=== PATIENT | male | born 1985 | race African-American/Black ===

== ENCOUNTER 2024-03-07 10:39 | Emergency (ER) | payer MEDICAID, OTHER ==
[~2024-03-07] VITALS: Ht 182.9 cm; Wt 79.5 kg
[2024-03-07 10:46] VITALS: TEMP 98.7
[2024-03-07 10:53] LABS: COVID AG,FIA SOURCE NASAL SWAB
[2024-03-07 11:27] LABS: RAPID GROUP A STREP NEGATIVE (NEGATIVE)
[2024-03-07 11:29] LABS: SARS-COV2 (COVID) ANTIGEN,FIA Negative (Negative)
[2024-03-07 11:30] LABS: INFLUENZA TYPE A NEGATIVE FOR TYPE A (NEGATIVE); INFLUENZA TYPE B NEGATIVE FOR TYPE B (NEGATIVE)
[2024-03-07] MEDS ORDERED: HYDR-4062 PO (11:44)
[2024-03-07] MEDS ORDERED: IBUP-1554 PO (11:44)
[2024-03-07] MEDS ORDERED: CEPH-558 PO (11:44)
[2024-03-07] MEDS: GENTAMICIN SULFATE 0.3% OPHTHALMIC SOLUTION 5 ML OD ONE (11:52)
[2024-03-07 12:12] VITALS: BP 110/65; PULSE 75; RESP 18; O2SAT 99
== END 2024-03-07 12:15 | disposition home or self-care (01) ==
LOC: EMS 10:41
DX: H10.9 Unspecified conjunctivitis (principal); J02.9 Acute pharyngitis, unspecified; F17.210 Nicotine dependence, cigarettes, uncomplicated; Z20.822 Contact with and (suspected) exposure to COVID-19
CPT/HCPCS: 87430; 87804; 99283

== ENCOUNTER 2025-01-29 07:02 | Emergency (ER) | payer MEDICAID, OTHER ==
[~2025-01-29 07:02] MED LIST: CEPH-558 PO; HYDR-4062 PO; IBUP-1554 PO
== END 2025-01-29 07:26 | disposition left against medical advice (07) ==
LOC: EMS 07:08
DX: R51.9 Headache, unspecified (principal); M54.9 Dorsalgia, unspecified; R50.9 Fever, unspecified; Z53.21 Procedure and treatment not carried out due to patient leaving prior to being seen by health care provider